=== PATIENT | female | born 1975 ===

== ENCOUNTER 2017-08-24 11:25 | Emergency (ER) | payer MEDICAID ==
[2017-08-24 11:25] VITALS: BMI 22.3
[2017-08-24 11:35] VITALS: O2SAT 100
[2017-08-24] MEDS ORDERED: Sodium Chloride 0.9% 1,000 ML IV STA (11:48)
--- NOTE | 2017-08-24 11:49 | ED PDOC ---
Arrival/HPI - General Chief Complaint: Flu-like Symptoms Time Seen by Provider: 08/24/17 11:45 Historian: Patient - History of Present Illness Narrative History of Present Illness (Text): 08/24/17 11:45 pt p/w + ~ 1 day onset of sore throat, + coughing, + not feeling well; + congestion, + runny nose, + fatigued, + diffuse body aches; no fever/chills/ sweats, + mild chest pressure, mild sob with coughing, no wheezing, no palpitations, no abd pain, + n/v x 3-4 episodes yesterday and today, mild decr appetite, no urinary/bowel changes, no fall/trauma/travel, + sick contact, no LOC; no rashes; pt also noted some mild lower back pain, + b/l leg cramps/ tightness, no focal weakness, no vision changes, no slurr speech; no urinary/ bowel incontience pt has not had MS exacerbation for a long time pt is here for further eval pt's without other complaints 08/24/17 15:22 Time/Duration: 24 hours Symptom Onset: Sudden Symptom Course: Unchanged, Worsening Severity Level: 5 Activities at Onset: Rest Context: Home Past Medical History - Provider Review Nursing Documentation Reviewed: Yes - Travel History Have you recently traveled outside [place] w/in the past 3 mons?: No - Past History Past History: No Previous - Infectious Disease Hx of Infectious Diseases: None - Tetanus Immunization Tetanus Immunization: Unknown - Past Medical History Past Medical History: No Previous - Cardiac Hx Cardiac Disorders: No Hx Hypertension: No - Pulmonary Hx Respiratory Disorders: No Hx Tuberculosis: No - Neurological Hx Neurological Disorder: Yes HX Cerebrovascular Accident: No Hx Multiple Sclerosis: Yes Hx Seizures: No - HEENT Hx HEENT Disorder: No - Renal Hx Renal Disorder: No - Endocrine/Metabolic Hx Endocrine Disorders: No - Hematological/Oncological Hx Blood Disorders: No Hx Cancer: No - Integumentary Hx Dermatological Disorder: No - Musculoskeletal/Rheumatological Hx Musculoskeletal Disorders: No - Gastrointestinal Hx Gastrointestinal Disorders: No - Genitourinary/Gynecological Hx Genitourinary Disorders: No Hx Sexually Transmitted Diseases: No - Psychiatric Hx Anxiety: Yes Hx Depression: Yes Hx Emotional Abuse: No Hx Physical Abuse: No Hx Substance Use: No - Past Surgical History Past Surgical History: No Previous - Surgical History Hx Tubal Ligation: Yes - Anesthesia Hx Anesthesia: Yes Hx Anesthesia Reactions: No Hx Malignant Hyperthermia: No - Suicidal Assessment Feels Threatened In Home Enviroment: No Family/Social History - Physician Review Nursing Documentation Reviewed: Yes Family/Social History: No Known Family HX Smoking Status: Never Smoked Hx Alcohol Use: No Hx Substance Use: No Hx Substance Use Treatment: No Allergies/Home Meds Allergies/Adverse Reactions: Allergies No Known Allergies Allergy (Verified 08/24/17 11:45) Home Medications: Home Meds Medication Instructions Recorded Confirmed Divalproex [Depakote] 1,000 mg PO BID 10/26/12 08/24/17 Fingolimod HCl [Gilenya] 0.5 mg PO DAILY 10/26/12 08/24/17 Clonazepam 0.5 tab PO HS 09/30/15 08/24/17 Docusate [Colace] 100 mg PO TID 10/06/15 08/24/17 Review of Systems - Review of Systems Constitutional: Fatigue. absent: Fevers Eyes: Normal ENT: Sore Throat, Rhinorrhea, Sinus Congestion Respiratory: Cough. absent: Wheezing Cardiovascular: Normal Gastrointestinal: Nausea, Vomiting. absent: Abdominal Pain, Diarrhea Musculoskeletal: Back Pain, Other (body pain) Skin: Normal Neurological: Dizziness Endocrine: Normal Hemo/Lymphatic: Normal Psychiatric: Normal Physical Exam Vital Signs Reviewed: Yes Vital Signs Temp Pulse Resp BP Pulse Ox 08/24/17 15:20 98.7 F 84 18 107/69 100 08/24/17 13:55 90 18 105/68 100 08/24/17 11:34 99.2 F 100 H 17 114/76 100 Temperature: Afebrile Blood Pressure: Normal Pulse: Other (slight tachycardia) Respiratory Rate: Normal Appearance: Positive for: Well-Appearing, Other (mildly uncomfortable, resting in bed, alert/awake, GCS = 15, oriented x 3, NAD, cooperative, follows command with ease) Pain Distress: None Mental Status: Positive for: Alert and Oriented X 3 - Systems Exam Head: Present: Atraumatic, Normocephalic Pupils: Present: PERRL, Other (wearing eyeglasses, visual field intact b/l, no nystagmus, no photophobia, sclera anicteric) Extroacular Muscles: Present: EOMI Conjunctiva: Present: Normal Ears: Present: Normal, NORMAL TM Mouth: Present: Normal Teeth, Other (mild dry oral mucosa, intact dentitions, no drooling/stridor, no dysphonia) Pharnyx: Present: Normal Nose (External): Present: Atraumatic Nose (Internal): Present: Normal Inspection Neck: Present: Normal Range of Motion, Trachea Midline, Other (intact ROM, no midline tenderness, no nuchal rigidity, no step off). No: MIDLINE TENDERNESS Respiratory/Chest: Present: Clear to Auscultation, Good Air Exchange, Other ( CTA b/l, no w/r/r, no accessory muscle use noted, no tachypenia). No: Respiratory Distress Cardiovascular: Present: Regular Rate and Rhythm, Normal S1, S2, Other (no murmur/regurg) Abdomen: Present: Normal Bowel Sounds, Other (well nourished female, no focal tenderness, no posey's sign, no mcburney's point tenderness, no masses/rebound/ guarding/rigidity) Back: Present: Normal Inspection. No: Midline Tenderness Upper Extremity: Present: Normal Inspection, Normal ROM, NORMAL PULSES, Neurovascularly Intact, Capillary Refill < 2s Lower Extremity: Present: Normal Inspection, NORMAL PULSES, Normal ROM, Neurovascularly Intact, Capillary Refill < 2 s Neurological: Present: GCS=15, CN II-XII Intact, Speech Normal, Motor Func Grossly Intact Skin: Present: Warm, Normal Color Psychiatric: Present: Alert, Oriented x 3 Medical Decision Making ED Course and Treatment: 08/24/17 11:52 Impression: sore throat, weakness, lower leg cramps intermittently, hx of MS i have consider all the differential diagnosis regarding pt's chief medical complaints/clinical findings, including but are not limited to: sore throat/ cough/runny nose (likely viral syndrome); hx of ms, lower leg cramps A/P: sore throat, viral syndrome, hx of mS - labs - iv - xray - ua - observe - supportive care 08/24/17 13:13 pt is doing well currently, expressing hunger but slight nausea no leg pain, no focal weakness noted I spoke to Dr Rivera ([phone]), pt's neurologists, made aware of pt's medical complaints and ED dx/txt, agrees with ED mgt/txt, will continue to f/u with patient as outpt, recommend no new medications/dosage changes currently; pt can be discharged home 08/24/17 15:26 vital signs remained stable throughout ED stay pt tolerated po well pt is feeling some improvement pt is made aware of her medical results pt is encouraged fluids pt is instructed on 1tsp of honey every 8hours for cough control pt will f/u as directed pt will be discharged home 08/24/17 15:27 Re-evaluation Time: 14:15 Reassessment Condition: Improved - Lab Interpretations Lab Results: 08/24/17 12:00 08/24/17 12:00 Lab Results 08/24/17 12:26: Urine HCG, Qual Negative 08/24/17 12:26: Urine Color Yellow, Urine Appearance Clear, Urine pH 6.0, Ur Specific [place] 1.020, Urine Protein Trace H, Urine Glucose (UA) Negative, Urine Ketones >=80, Urine Blood Negative, Urine Nitrate Negative, Urine Bilirubin Small H, Urine Urobilinogen 1.0 H, Ur Leukocyte Esterase Negative, Urine RBC 0 - 2, Urine WBC 1 - 3, Ur Epithelial Cells 4 - 5, Urine Bacteria Many , Urine Other Uyeast 08/24/17 12:00: Grp A Beta Strep Ag Negative 08/24/17 12:00: Sodium 143, Chloride 106, Potassium 4.2, Carbon Dioxide 25, Anion Gap 16, BUN 13, Creatinine 0.7, Est GFR ( Amer) > 60, Est GFR (Non- Af Amer) > 60, Random Glucose 108, Calcium 9.7, Total Bilirubin 0.4, AST 23, ALT 31, Alkaline Phosphatase 46, Troponin I < 0.01, Total Protein 7.2, Albumin 4.3, Globulin 3.0, Albumin/Globulin Ratio 1.4, Lipase 168 08/24/17 12:00: pO2 34, VBG pH 7.50 H, VBG pCO2 34.0 L, VBG HCO3 26.5, VBG Total CO2 27.5, VBG O2 Sat (Calc) 77.9 H, VBG Base Excess 3.6 H, VBG Potassium 4.1, Sodium 138.0, Chloride 106.0, Glucose 112 H, Lactate 1.5, FiO2 21.0, Venous Blood Potassium 4.1 08/24/17 12:00: WBC 6.2 D, RBC 4.27, Hgb 13.8, Hct 40.2, MCV 94.1, MCH 32.3, MCHC 34.3, RDW 12.4, Plt Count 225, MPV 10.2, Gran % 78.4 H, Lymph % (Auto) 7.6 L, [place] % (Auto) 13.8 H, Eos % (Auto) 0.0 L, Baso % (Auto) 0.2, Gran # 4.83, Lymph # (Auto) 0.5 L, [place] # (Auto) 0.9 H, Eos # (Auto) 0.0, Baso # (Auto) 0.01 I have reviewed the lab results: Yes Interpretation: Abnormal lab values (dehydration) - RAD Interpretation Narrative RAD Interpretations (Text): Report Date : 08/24/2017 14:56:35 PROCEDURE: Chest xray Dictator : Paramjit Guillen MD FINDINGS: LUNGS:No active pulmonary disease. PLEURA:No significant pleural effusion identified. No pneumothorax apparent. CARDIOVASCULAR:Normal. OSSEOUS STRUCTURES:No significant abnormalities. VISUALIZED UPPER ABDOMEN:Normal. OTHER FINDINGS:None. IMPRESSION: No active disease. Radiology Orders: 08/24/17 11:46 CHEST TWO VIEWS (PA/LAT) [RAD] Stat Aircraft Time Clerk: Radiologist - EKG Interpretation EKG Interpretation (Text): 08/24/17 15:21 Sinus tach at 105 bpm, normal axis, no ectopy, diffuse low voltage throughout leads, no st-t changes, BORDERLINE EKG; unchanged compare with old ekg 10/2015 Interpreted by ED Physician: Yes Type: 12 lead EKG Comparison: Similar to previous EKG - Medication Orders Current Medication Orders: Discontinued Medications Sodium Chloride (Sodium Chloride 0.9%) 1,000 mls @ 999 mls/hr IV .Q1H1M STA Stop: 08/24/17 12:48 Last Admin: 08/24/17 12:24 Dose: 999 mls/hr eMAR Start Stop Document 08/24/17 12:24 SE (Rec: 08/24/17 12:24 SE [id number]) Intravenous Solution Start Date 08/24/17 Start Time 12:24 Ibuprofen (Motrin Tab) 600 mg PO STAT STA Stop: 08/24/17 11:50 Last Admin: 08/24/17 12:23 Dose: 600 mg MAR Pain/Vitals Document 08/24/17 12:23 SE (Rec: 08/24/17 12:23 SE [id number]) Pain Reassessment Is This A Pain ReAssessment? No Sleep Is patient sleeping during reassessment? No Presence of Pain Presence of Pain Yes Lidocaine HCl (Lidocaine 2% Viscous) 15 ml MM STAT STA Stop: 08/24/17 11:49 Last Admin: 08/24/17 12:23 Dose: 15 ml Ondansetron HCl (Zofran Inj) 4 mg IVP STAT STA Stop: 08/24/17 13:13 Last Admin: 08/24/17 13:19 Dose: 4 mg IVP Administration Document 08/24/17 13:19 SE (Rec: 08/24/17 13:19 SE [id number]) Charges for Administration # of IVP Administrations 1 Oseltamivir Phosphate (Tamiflu Cap) 75 mg PO ONCE ONE PRN Reason: Protocol Stop: 08/24/17 11:48 Last Admin: 08/24/17 12:23 Dose: 75 mg Disposition/Present on Arrival - Present on Arrival Any Indicators Present on Arrival: No History of DVT/PE: No History of Uncontrolled Diabetes: No Urinary Catheter: No History Surgical Site Infection Following: None - Disposition Have Diagnosis and Disposition been Completed?: Yes Diagnosis: Viral syndrome, Dehydration Disposition: HOME/ ROUTINE Disposition Time: 15:12 Patient Plan: Discharge Patient Problems: Current Active Problems Problem Status Onset Dehydration Acute Viral syndrome Acute Condition: STABLE Discharge Instructions (ExitCare): Dehydration, Adult (DC), Viral Upper Respiratory Infection, Adult (DC) Print Language: [place] Additional Instructions: Make sure to see your doctor in 1-2 days DRINK PLENTY OF FLUIDS take your medications as prescribed try 1 teaspoon of honey every 8hours for cough control RETURN TO ED IF worse pain, cant breath, persistent vomiting, high fever >101- 102 for hours, altered behavior, unable to urinate, heavy/persistent bleeding, passing out, chest pain, or other medical emergencies Prescriptions: Ibuprofen [Motrin] 600 mg PO TID PRN #30 tab PRN Reason: Pain, Mild (1-3) Lidocaine 2% Viscous 10 ml MM TID PRN #100 ml PRN Reason: dysphagia Ondansetron ODT [Zofran ODT] 4 mg PO TID PRN #10 odt PRN Reason: Nausea/Vomiting Oseltamivir [Tamiflu] 75 mg PO BID #9 cap Referrals: Bethanie Saldana BACK UP MACHINE OPERATOR [Primary Care Provider] - Follow up with primary Forms: [email or web address] ([place])
[2017-08-24 12:14] LABS: VENOUS BLOOD GAS BASE EXCESS 3.6 mmol/L (0.0-2.0); VENOUS BLOOD GAS PO2 34 mm/Hg (30-55)
[2017-08-24 12:15] LABS: BASO # 0.01 K/mm3 (0.0-2.0); BASO % 0.2 % (0.0-3.0); GRAN # 4.83 (1.4-6.5); GRAN % 78.4 % (50.0-68.0); HEMOGLOBIN 13.8 g/dL (12.0-16.0); LYMPH # 0.5 (1.2-3.4); LYMPH % 7.6 % (22.0-35.0); MEAN CELL VOLUME 94.1 fl (80.0-105.0); MEAN CORPUSCULAR HEMOGLOBIN 32.3 pg (25.0-35.0); MEAN CORPUSCULAR HGB CONC 34.3 g/dl (31.0-37.0); MEAN PLATELET VOLUME 10.2 fl (7.0-11.0); MONO # 0.9 (0.1-0.6); MONO % 13.8 % (1.0-6.0); RBC 4.27 10^6/uL (3.5-6.1); RED CELL DISTRIBUTION WIDTH 12.4 % (11.5-14.5); WHITE BLOOD COUNT 6.2 10^3/ul (4.5-11.0)
[2017-08-24 12:29] LABS: ALB/GLOB RATIO 1.4 (1.1-1.8); ALBUMIN 4.3 g/dL (3.0-4.8); ALT/SGPT 31 U/L (7-56); AST/SGOT 23 U/L (14-36); BLOOD UREA NITROGEN 13 mg/dL (7-21); CALCIUM 9.7 mg/dL (8.4-10.5); GFR AFRICAN-AMERICAN > 60; GFR NON-AFRICAN AMERICAN > 60; LIPASE 168 U/L (23-300)
[2017-08-24 12:34] LABS: URINE BILIRUBIN SMALL (NEGATIVE); URINE BLOOD NEGATIVE (NEGATIVE); URINE GLUCOSE (UA) NEGATIVE (NEGATIVE); URINE LEUKOCYTE ESTERASE NEGATIVE Leu/uL (NEGATIVE); URINE NITRATE NEGATIVE (NEGATIVE); URINE PROTEIN TRACE mg/dL (<30 mg/dL)
[2017-08-24 12:39] LABS: TROPONIN I < 0.01 ng/mL
[2017-08-24 12:40] LABS: URINE APPEARANCE CLEAR (CLEAR); URINE COLOR YELLOW (YELLOW)
[2017-08-24 12:57] LABS: URINE BACTERIA MANY (NEG); URINE RBC 0 - 2 /hpf (0-2)
[2017-08-24 13:56] VITALS: RESP 18
--- NOTE | 2017-08-24 14:58 | RAD ---
HISTORY: cough COMPARISON: 09/30/2015 TECHNIQUE: Chest PA and lateral FINDINGS: LUNGS: No active pulmonary disease. PLEURA: No significant pleural effusion identified. No pneumothorax apparent. CARDIOVASCULAR: Normal. OSSEOUS STRUCTURES: No significant abnormalities. VISUALIZED UPPER ABDOMEN: Normal. OTHER FINDINGS: None. IMPRESSION: No active disease.
[2017-08-24 15:20] VITALS: BP 107/69; PULSE 84; TEMP 98.7
--- NOTE | 2017-08-25 02:34 | CARD ---
APPROVED REPORT EKG Measurement Heart [id number] <Conclusion> Sinus tachycardia Otherwise normal ECG
== END 2017-08-24 15:50 | disposition home or self-care (01) ==
LOC: ED 11:25
DX: B34.9 Viral infection, unspecified (principal); E86.0 Dehydration; G35 Multiple sclerosis
CPT/HCPCS: 71046; 80053; 81001; 82803; 83690; 84484; 84703; 85025; 87070; 87430; 93005; 96374; 99284; J2405; J7040